=== PATIENT | male | born 1960 | race Two or more races ===

== ENCOUNTER 2018-11-07 11:27 | Inpatient (IN) | payer SELFPAY ==
[~2018-11-07] VITALS: Ht 175.3 cm; Wt 73.3 kg
[2018-11-07] MEDS ORDERED: SODIUM CHLORIDE 0.9% 1,000 ML IV ONE (12:59)
[2018-11-07] MEDS ORDERED: SODIUM CHLORIDE 0.9% 1,000 ML IVB ONE (13:18)
[2018-11-07] MEDS ORDERED: TETANUS-DIPTH-ACEL PERTUSSIS 0.5ML SYRG IM ONE (13:30)
[2018-11-07] MEDS ORDERED: cefTRIAXone 1GM/50ML D5W 50 ML IV ONE (13:30)
[2018-11-07 13:58] LABS: Basophils # (auto) 0.1 uL; Basophils % (auto) 0.6 % (0.0-2.0); Eosinophils # (auto) 0.2 uL; Hemoglobin 11.1 g/dL (13.5-17.5); Neutrophils % (auto) 84.7 % (37.0-80.0); White Blood Cell 17.2 10^3/uL (4.4-10.8)
[2018-11-07 14:00] LABS: Hematocrit 33.8 % (41.0-53.0); Lymphocytes # (auto) 1.1 uL; Lymphocytes % (auto) 6.5 % (10.0-50.0); Mean Corpuscular Hemoglobin 25.8 pg (28.0-32.0); Mean Corpuscular Hgb Conc. 32.8 g/dL (32.0-36.0); Mean Corpuscular Volume 78.9 fL (80.0-100.0); Monocytes # (auto) 1.2 uL; Monocytes % (auto) 7.2 % (0.0-12.0); Neutrophils # (auto) 14.5 uL; Platelet Count (auto) 707 10^3/uL (140-450); Red Blood Cells 4.28 10^6/uL (4.5-5.90)
[2018-11-07 14:13] LABS: Albumin 2.8 g/dL (3.4-5.0); Calcium 8.2 mg/dL (8.5-10.1); Magnesium 2.5 mg/dL (1.6-2.6); Potassium 4.5 mmol/L (3.5-5.1)
[2018-11-07 14:16] LABS: BUN/Creatinine Ratio 17.6; Bilirubin, Total 0.4 mg/dL (0.2-1.0); Total Protein 6.7 g/dL (6.4-8.2)
[2018-11-07] MEDS ORDERED: LEVOFLOXACIN 500MG 100 ML IV ONE (15:00)
[2018-11-07 15:26] LABS: Urine Bacteria NONE SEEN /hpf (None Seen); Urine Blood Negative /uL (Negative); Urine Specific Gravity 1.004 (1.001-1.035); Urine WBC <1 /hpf (0 - 3)
[2018-11-07] MEDS ORDERED: MORPHINE SULF INJ 2 MG/ML SYRINGE 1ML IV PRN (19:00)
[2018-11-07] MEDS ORDERED: MORPHINE SULFATE 4 MG/ML SYR/VIAL IV PRN (19:00)
[2018-11-07] MEDS ORDERED: NITROGLYCERIN 0.4 MG SL TAB SL PRN (19:00)
[2018-11-07] MEDS: IPRATROPIUM BROM 0.5 MG/2.5ML INH SOL NEB SCH (19:00)
[2018-11-07] MEDS: ALBUTEROL SULF 2.5 MG/0.5ML(0.5%) NEB SOLN NEB SCH (19:00)
[2018-11-07] MEDS ORDERED: ONDANSETRON HCL 4 MG/2 ML VIAL IV PRN (19:00)
[2018-11-07] MEDS ORDERED: DEXTROSE (50%) 50ML SYRG IV PRN (19:15)
[2018-11-07 19:21] VITALS: BP 109/59
[2018-11-07] MEDS: SODIUM CHLORIDE 0.9% 1,000 ML IV SCH (20:18)
[2018-11-07 21:00] VITALS: BP 125/71
--- NOTE | 2018-11-07 21:00 | NUR ---
Telemetry admit from ER EBONY POPE admitted to Telemetry unit after SBAR received. Patient oriented to Olivia Gonzales RN primary RN, unit, room, bed, and unit policies regarding patient care and visiting hours. Patient now on continuous telemetry monitoring, tele box # 7 and telemetry reading on arrival to unit is SR. Patient weighed by bedscale and encouraged to call if they need something. All questions and concerns addressed, patient verbalized understanding, will continue to monitor Note: []
[2018-11-07 22:00] VITALS: BP 125/71
[2018-11-07] MEDS: CLINDAMYCIN 600MG IV 50 ML IV SCH (23:46)
[2018-11-07] MEDS: ACYCLOVIR 400 MG TAB PO SCH (23:46)
[2018-11-07] MEDS: ACCU-CHEK COMFORT CURVE STRIP VI SCH (23:47)
[2018-11-07] MEDS: InsuLIN REG 1unit/0.01ml Soln (100units/ml) SC SCH (23:47)
[2018-11-08] MEDS ORDERED: LAM100T PO (00:04)
[2018-11-08] MEDS ORDERED: METF-371 PO (00:04)
[2018-11-08] MEDS ORDERED: CANA300T PO (00:04)
[2018-11-08] MEDS ORDERED: DIVA500T53 PO (00:04)
[2018-11-08] MEDS ORDERED: ARIP1TAB7 PO (00:04)
[2018-11-08] MEDS ORDERED: AMPH20TA20 PO (00:04)
[2018-11-08] MEDS ORDERED: ASPI81CH43 PO (00:04)
[2018-11-08] MEDS ORDERED: CLON1TAB PO (00:04)
[2018-11-08 04:14] VITALS: BP 125/71
[2018-11-08] MEDS: SODIUM CHLORIDE 0.9% 1,000 ML IV SCH ×2 (05:15→17:30)
[2018-11-08 05:43] LABS: Basophils # (auto) 0 uL; Eosinophils # (auto) 0.2 uL; Monocytes # (auto) 1.4 uL; Monocytes % (auto) 9.4 % (0.0-12.0); White Blood Cell 14.7 10^3/uL (4.4-10.8)
[2018-11-08 05:47] LABS: Basophils % (auto) 0.2 % (0.0-2.0); Eosinophils % (auto) 1.6 % (0.0-7.0); Hematocrit 34.2 % (41.0-53.0); Hemoglobin 11.7 g/dL (13.5-17.5); Lymphocytes # (auto) 1.7 uL; Lymphocytes % (auto) 11.8 % (10.0-50.0); Mean Corpuscular Hemoglobin 26.8 pg (28.0-32.0); Mean Corpuscular Hgb Conc. 34.1 g/dL (32.0-36.0); Mean Corpuscular Volume 78.6 fL (80.0-100.0); Neutrophils # (auto) 11.3 uL; Platelet Count (auto) 713 10^3/uL (140-450); Red Blood Cells 4.35 10^6/uL (4.5-5.90); Red Cell Distribution Width 16.1 % (11.8-14.3)
[2018-11-08 05:53] VITALS: BP 140/93
[2018-11-08] MEDS: CLINDAMYCIN 600MG IV 50 ML IV SCH ×3 (06:08→20:20)
[2018-11-08] MEDS: ACYCLOVIR 400 MG TAB PO SCH ×5 (06:09→20:20)
[2018-11-08] MEDS: ACCU-CHEK COMFORT CURVE STRIP VI SCH ×4 (06:10→22:10)
[2018-11-08 06:13] LABS: BUN/Creatinine Ratio 15.5; Potassium 4.3 mmol/L (3.5-5.1)
--- NOTE | 2018-11-08 06:27 | NUR ---
Patient is by the window laughing and talking to himself. He took off tele box and said that its not working and threw batteries in the trash. Reoriented to time, place and situation and patient verbalized understanding, will endorse to dayshift RN
[2018-11-08] MEDS: InsuLIN REG 1unit/0.01ml Soln (100units/ml) SC SCH ×4 (06:28→22:10)
[2018-11-08] MEDS: ALBUTEROL SULF 2.5 MG/0.5ML(0.5%) NEB SOLN NEB SCH ×4 (07:04→19:48)
[2018-11-08] MEDS: IPRATROPIUM BROM 0.5 MG/2.5ML INH SOL NEB SCH ×4 (07:04→19:48)
[2018-11-08 07:40] LABS: Alcohol, Urine < 3.0 mg/dL (0-5); Amphetamine Screen, Urine NEGATIVE (NEGATIVE); Barbiturate Scree,Urine NEGATIVE (NEGATIVE); Benzodiazephine Screen, Urine NEGATIVE (NEGATIVE); Cannabinoid Screen, Urine NEGATIVE (NEGATIVE); Cocaine Screen, Urine NEGATIVE (NEGATIVE); Opiate Scree,Urine NEGATIVE (NEGATIVE); Phencyclidine Screen, Urine NEGATIVE (NEGATIVE)
[2018-11-08 08:56] VITALS: BP 140/74
[2018-11-08] MEDS: PANTOPRAZOLE 40 MG TAB PO SCH (10:29)
[2018-11-08] MEDS: lamoTRIgine 25 MG TAB PO SCH (10:30)
[2018-11-08] MEDS: LEVOFLOXACIN 750MG 150 ML IV SCH (10:32)
[2018-11-08] MEDS: NICOTINE 21MG/24 HR TOPICAL PATCH TD SCH ×2 (10:50→10:54)
[2018-11-08 13:00] VITALS: BP 117/79
--- NOTE | 2018-11-08 13:08 | NUR ---
I ENTERED THE ROOM OF MR. Hull, and I found the calm and cooperative. He sates that his pain is 7 on a scale from 0 to 10. His RR:14, hr:74. PHYSICAL EXAM: hIS LUNGS ARE CLEAR, AND HIS ABDOMEN: BOWEL SOUNDS ARE PRESENT IN ALL QUADRANTS. AT 1210 I TOOK HIS BLOOD GLUCOSE LEVEL TWO TIMES: FIRST READING WAS: 330 MG/DL AND THE SECOND WAS 293 MG/DL. I GAVE 6 UNITS OF INSULIN AND THE PATIENT EAT HIS LUNCH AND HE IS STABLE NOW. Addendum: 11/08/18 at 1318 by Madhavi Strong RN HIGH BLOOD GLUCOSE LEVEL
--- NOTE | 2018-11-08 15:30 | NUR ---
PT NOTES PT FOUND IN THE ROOM PLAYING WITH THE IV TUBING. PT HAD OPENED THE IV PUMP, PULLED OUT THE TUBING, PULLED THE EMPTY IV BAG OF ANTIBIOTIC AND WAS PULLING THE IVPB TUBING SAYING "HE'S WORKING OUT" . DR ARANA AT BEDSIDE.
[2018-11-08] MEDS: clonazePAM 0.5 MG TAB PO PRN (16:00)
[2018-11-08 17:00] VITALS: BP 129/83
--- NOTE | 2018-11-08 17:00 | NUR ---
AMA TO SMOKE FORM SIGNED AND FILED IN PT'S CHART
--- NOTE | 2018-11-08 17:00 | NUR ---
PT NOTES PT NOTED TO BE CALMER AND MORE ORIENTED AFTER TAKING CLONOPIN. PT STATED THAT HE GETS SEVERE ANXIETY BUT IS NOW FEELING MUCH BETTER.
--- NOTE | 2018-11-08 19:30 | NUR ---
PT NOTES PT IN THE ROOM, RESTING, WATCHING TV. DENIES PAIN AT THIS TIME. NO DISTRESS NOTED.
[2018-11-08] MEDS: HYDROcodone-ACET 5/325MG TAB PO PRN (20:20)
[2018-11-08] MEDS: ACETAMINOPHEN 500 MG TAB PO PRN (20:38)
--- NOTE | 2018-11-08 20:39 | NUR ---
D/C TELE DR ARANA ORDERED TO D/C TELE. TELEMETRY REMOVED.
[2018-11-08 21:49] VITALS: BP 119/65
[2018-11-09] MEDS: IPRATROPIUM BROM 0.5 MG/2.5ML INH SOL NEB SCH ×4 (00:45→19:16)
[2018-11-09] MEDS: ALBUTEROL SULF 2.5 MG/0.5ML(0.5%) NEB SOLN NEB SCH ×4 (00:45→19:15)
[2018-11-09] MEDS: SODIUM CHLORIDE 0.9% 1,000 ML IV SCH ×2 (01:15→11:15)
[2018-11-09 04:49] VITALS: BP 129/67
[2018-11-09] MEDS: ACYCLOVIR 400 MG TAB PO SCH ×5 (05:10→22:36)
[2018-11-09] MEDS: CLINDAMYCIN 600MG IV 50 ML IV SCH ×3 (05:10→22:35)
[2018-11-09] MEDS: HYDROcodone-ACET 5/325MG TAB PO PRN ×2 (05:11→11:43)
[2018-11-09] MEDS: ACETAMINOPHEN 500 MG TAB PO PRN (05:15)
[2018-11-09] MEDS: InsuLIN REG 1unit/0.01ml Soln (100units/ml) SC SCH ×4 (05:16→22:37)
[2018-11-09] MEDS: ACCU-CHEK COMFORT CURVE STRIP VI SCH ×4 (05:16→22:37)
[2018-11-09 06:52] LABS: Hemoglobin 11.5 g/dL (13.5-17.5); Neutrophils # (auto) 7.4 uL; White Blood Cell 9.8 10^3/uL (4.4-10.8)
[2018-11-09 06:55] LABS: Basophils # (auto) 0.1 uL; Basophils % (auto) 0.6 % (0.0-2.0); Eosinophils # (auto) 0.3 uL; Eosinophils % (auto) 2.6 % (0.0-7.0); Hematocrit 34.3 % (41.0-53.0); Lymphocytes # (auto) 1.1 uL; Lymphocytes % (auto) 11.2 % (10.0-50.0); Mean Corpuscular Hemoglobin 26.5 pg (28.0-32.0); Mean Corpuscular Hgb Conc. 33.6 g/dL (32.0-36.0); Monocytes % (auto) 10.1 % (0.0-12.0); Neutrophils % (auto) 75.5 % (37.0-80.0); Nucleated Red Blood Cells % 0.1 %; Platelet Count (auto) 660 10^3/uL (140-450); Red Blood Cells 4.34 10^6/uL (4.5-5.90); Red Cell Distribution Width 16.4 % (11.8-14.3)
[2018-11-09 07:07] LABS: Potassium 4.5 mmol/L (3.5-5.1)
[2018-11-09 07:13] LABS: Calcium 7.9 mg/dL (8.5-10.1)
--- NOTE | 2018-11-09 07:20 | NUR ---
Morning rounds- educated patient on IV administration Patient seen standing at the doorway. Patient requesting to ambulate to smoking area to smoke. Patient seen squeezing the IV NS bag. Patient stated "I was trying to get the water in so I could go downstairs to smoke." Educated the patient to not touch the IV set up and/or the pump. Patient verbalized understanding. Instructed patient on POC, fall precautions and to call for assistance as needed. patient verbalized understanding. Patient dressed in street clothes at this time with his personal shoes on. Patient ambulated off the unit with a steady gait. No s/s of distress noted at this time.
--- NOTE | 2018-11-09 08:10 | NUR ---
Positive MRSA results Received positive MRSA nares results. Paged Dr. Sullivan to notify. Notified anne marie Moreira RN. Requested cici Negron, to place isolation food service manager at door. Jamil verbalized understanding.
--- NOTE | 2018-11-09 08:13 | NUR ---
Updated RONA Sullivan Telephone orders received and read back to verify. RN to place orders per MD's request.
--- NOTE | 2018-11-09 08:30 | NUR ---
RE: Wound and respiratory culture orders Patient denies productive cough at this time. Instructed patient to notify staff if cough is productive so that a sputum sample can be collected. Patient verbalized understanding. No drainage from the wounds to the right 5th digit and the left wrist. Unable to collect wound culture specimen at this time.
[2018-11-09 09:00] VITALS: BP 149/72
[2018-11-09] MEDS: lamoTRIgine 25 MG TAB PO SCH (11:18)
[2018-11-09] MEDS: NICOTINE 21MG/24 HR TOPICAL PATCH TD SCH (11:19)
[2018-11-09] MEDS: clonazePAM 0.5 MG TAB PO PRN (11:19)
[2018-11-09] MEDS: LEVOFLOXACIN 750MG 150 ML IV SCH (11:19)
[2018-11-09] MEDS: PANTOPRAZOLE 40 MG TAB PO SCH (11:19)
[2018-11-09 13:00] VITALS: BP 148/65
--- NOTE | 2018-11-09 14:55 | NUR ---
MD was at bedside - Dr. Sullivan POC discussed with the patient and this RN. MD to place verbal orders.
--- NOTE | 2018-11-09 17:56 | NUR ---
Patient refused sliding scale Insulin dose Patient stated "dinner is going to be served soon. I'm going to eat a little protein and my sugar will work itself out. I don't need any insulin." Insulin will be wasted in the medication pyxis with an RN witness.
--- NOTE | 2018-11-09 17:58 | NUR ---
Shakira returned to medication pyxis [place] removed to medicate patient PRN for pain. Patient stated "Nah, I'm good right now. I've had enough of that stuff for the day I decided." Medication will be returned to the medication pyxis with an RN witness.
[2018-11-09 18:07] VITALS: BP 139/69
--- NOTE | 2018-11-09 18:45 | NUR ---
End of shift patient sitting at side of bed with feet dangling. patient has personal clothing on with personal shoes on. Patient educated on fall precautions. Patient verbalized understanding. Bed is in low locked position with x2 side rails up and call light within reach. No drainage noted to the wound on the right 5th digit and/or wound on the left wrist. Will endorse care to RN.
--- NOTE | 2018-11-09 20:30 | NUR ---
Pt is sitting up in bed and stating that, " My IV is no good and I want it out. It's hanging out and I am going to just pull it out." IV site is cdi and IV is intact. IV site needs tape reinforcement and pt is refusing to allow that and threatening to pull the IV out. Explained to pt that IV will be dc'd when new IV can be placed. Pt verbalizes understanding.
[2018-11-09] MEDS: metFORMIN HYDROCHLORIDE 850 MG TAB PO SCH (22:36)
[2018-11-10] MEDS: IPRATROPIUM BROM 0.5 MG/2.5ML INH SOL NEB SCH ×4 (00:46→19:06)
[2018-11-10] MEDS: ALBUTEROL SULF 2.5 MG/0.5ML(0.5%) NEB SOLN NEB SCH ×4 (00:46→19:06)
[2018-11-10 05:00] VITALS: BP 128/80
[2018-11-10] MEDS: ACYCLOVIR 400 MG TAB PO SCH ×5 (06:17→22:17)
[2018-11-10] MEDS: metFORMIN HYDROCHLORIDE 850 MG TAB PO SCH ×3 (06:17→22:16)
[2018-11-10] MEDS: InsuLIN REG 1unit/0.01ml Soln (100units/ml) SC SCH ×4 (06:17→22:17)
[2018-11-10] MEDS: CLINDAMYCIN 600MG IV 50 ML IV SCH ×3 (06:17→22:16)
[2018-11-10] MEDS: ACCU-CHEK COMFORT CURVE STRIP VI SCH ×4 (06:18→22:19)
[2018-11-10 08:30] VITALS: BP 133/76
[2018-11-10] MEDS: HYDROcodone-ACET 5/325MG TAB PO PRN (08:38)
[2018-11-10] MEDS: LEVOFLOXACIN 750MG 150 ML IV SCH (09:45)
[2018-11-10] MEDS: lamoTRIgine 25 MG TAB PO SCH (09:45)
[2018-11-10] MEDS: NICOTINE 21MG/24 HR TOPICAL PATCH TD SCH (09:47)
[2018-11-10] MEDS: PANTOPRAZOLE 40 MG TAB PO SCH (10:00)
[2018-11-10 12:31] VITALS: BP 110/58
[2018-11-10 16:21] VITALS: BP 141/73
--- NOTE | 2018-11-10 19:40 | NUR ---
Opening shift Note Pt is resting in bed watching TV. No s/s of any distress noted at this time. POC discussed with pt and pt verbalizes understanding. Reinforcement needed prn. Bed is low, wheels are locked, and call light is with in reach.
[2018-11-10 22:00] VITALS: BP 146/78
[2018-11-10 22:58] VITALS: BP 146/78
--- NOTE | 2018-11-10 23:15 | NUR ---
Entered pt room because call light going off and found pt standing in a defensive position with the disconnected call light in his hands. Pt appears to be confused and when asked what's going on pt states that, " I just need to go to sleep and this is how I sleep." asked pt to hand over the call light cord and then pt wrapped the cord around his neck and stated again that , " This is how I go to sleep." Pt is backed up against the opposite side of the room and standing near the window and yamil huerta called at this time. As smelter charger and other staff run in with security, this RN went to [facility] to obtain Klonopin per prn orders.
[2018-11-10] MEDS: clonazePAM 0.5 MG TAB PO PRN (23:20)
--- NOTE | 2018-11-10 23:20 | NUR ---
Pt offered the Klonopin PO and pt took med PO willingly stating that , " Oh I forgot about that , oh yes I want to take Klonopin. " I also have Depakote 3 tablets that I take when I feel a Psychotic episode coming on that my doctor told me to take." Pt is now sitting on the bed and appears to be calm and appropriate, call light is plugged into the wall , and pt is asking for a sandwich. Will notify the farm demonstrator hospitalist and give status report.
--- NOTE | 2018-11-10 23:30 | NUR ---
FSBS = 136
--- NOTE | 2018-11-10 23:57 | NUR ---
Pt sitting on the side of his bed dressed in street clothes and asking to go out to smoke. Pt encouraged to stay inside and he verbalizes understanding at this time and states, " I guess I will just wait til morning."
[2018-11-11] MEDS: ALBUTEROL SULF 2.5 MG/0.5ML(0.5%) NEB SOLN NEB SCH ×4 (00:20→19:28)
[2018-11-11] MEDS: IPRATROPIUM BROM 0.5 MG/2.5ML INH SOL NEB SCH ×4 (00:20→19:27)
--- NOTE | 2018-11-11 00:32 | NUR ---
Still awaiting return call from Hospitalist ; paged again now.
--- NOTE | 2018-11-11 00:35 | NUR ---
Pt laying in bed quietly watching TV fully dressed with shoes on.
--- NOTE | 2018-11-11 00:36 | NUR ---
Return page from Jennifer BROWN and new orders received at this time for sitter and to resume home medication of Depakote 500mg PO TID.
--- NOTE | 2018-11-11 05:00 | NUR ---
Pt asking to go down to go down and smoke. Explained to pt that he now has to stay in the room with a sitter and pt asks, " Do I have a 5150 hold on me? Be cause if I do not then I want to go down and smoke." Pt escorted down to smoking area by staff. Pt wears surgical mask when out of room.
--- NOTE | 2018-11-11 05:10 | NUR ---
Received a call from security to meet them down by the elevators. When down by the elevators pt was sitting in a wheel chair with security and chemist biological of the ER and pt yelling out that they are trying to take him into the wrong elevator to go to room 288. Explained to pt that the elevators are the correct elevators to get back to his room and pt very resistant and suspicious. Security and MASSAGE THERAPY INSTRUCTOR lifted w/c and got pt into the elevator and back to room 288. Pt then calmed down.
[2018-11-11 05:25] VITALS: BP 126/75
--- NOTE | 2018-11-11 05:30 | NUR ---
's office on the phone stating that pt has called and seems confused , asking for the assistant manager trainee's to come get him and take him to the homeless [facility] living. Explained that pt is confused and is safe here.
--- NOTE | 2018-11-11 05:57 | NUR ---
Pt has removed left wrist drsg and holding a hand skin diver wipe over the wound. He states that, " it popped." No drainage noted . Pt is also refusing all meds and accu check this morning.
[2018-11-11] MEDS: ACYCLOVIR 400 MG TAB PO SCH ×5 (06:00→22:15)
[2018-11-11] MEDS: metFORMIN HYDROCHLORIDE 850 MG TAB PO SCH ×3 (06:00→22:15)
[2018-11-11] MEDS: CLINDAMYCIN 600MG IV 50 ML IV SCH ×3 (06:00→22:14)
[2018-11-11] MEDS: InsuLIN REG 1unit/0.01ml Soln (100units/ml) SC SCH ×4 (06:01→22:16)
[2018-11-11] MEDS: ACCU-CHEK COMFORT CURVE STRIP VI SCH ×4 (06:01→22:15)
[2018-11-11] MEDS: lamoTRIgine 25 MG TAB PO SCH (09:18)
[2018-11-11] MEDS: NICOTINE 21MG/24 HR TOPICAL PATCH TD SCH (09:21)
[2018-11-11] MEDS: LEVOFLOXACIN 750MG 150 ML IV SCH (09:22)
[2018-11-11] MEDS: PANTOPRAZOLE 40 MG TAB PO SCH (09:24)
[2018-11-11 12:00] VITALS: BP 123/83
--- NOTE | 2018-11-11 15:58 | NUR ---
Dr. Couch at bedside, received new orders, noted and carried out.
[2018-11-11 16:00] VITALS: BP 135/75
--- NOTE | 2018-11-11 16:00 | NUR ---
Spoke with Harish NICHOLS) regarding patient needs a sitter, she made aware and will find one.
--- NOTE | 2018-11-11 16:10 | NUR ---
Psychiatric called regarding patient had suicidal idea last night, awaiting to call back .
--- NOTE | 2018-11-11 17:30 | NUR ---
Avinash Lugo (psychiatric) discussed with patient via VDO conference.
[2018-11-11 22:00] VITALS: BP 131/72
[2018-11-12] MEDS: ALBUTEROL SULF 2.5 MG/0.5ML(0.5%) NEB SOLN NEB SCH ×3 (00:53→11:50)
[2018-11-12] MEDS: IPRATROPIUM BROM 0.5 MG/2.5ML INH SOL NEB SCH ×3 (00:53→11:50)
[2018-11-12 05:00] VITALS: BP 107/74
[2018-11-12 06:01] LABS: Basophils # (auto) 0 uL; Basophils % (auto) 0.5 % (0.0-2.0); Eosinophils # (auto) 0.3 uL; Eosinophils % (auto) 2.5 % (0.0-7.0); Hematocrit 36.8 % (41.0-53.0); Hemoglobin 12.4 g/dL (13.5-17.5); Lymphocytes # (auto) 1.1 uL; Lymphocytes % (auto) 10.3 % (10.0-50.0); Mean Corpuscular Hemoglobin 26.6 pg (28.0-32.0); Mean Corpuscular Hgb Conc. 33.7 g/dL (32.0-36.0); Monocytes # (auto) 1.1 uL; Monocytes % (auto) 9.9 % (0.0-12.0); Neutrophils # (auto) 8.3 uL; Neutrophils % (auto) 76.8 % (37.0-80.0); Platelet Count (auto) 672 10^3/uL (140-450); Red Blood Cells 4.66 10^6/uL (4.5-5.90); Red Cell Distribution Width 16.7 % (11.8-14.3); White Blood Cell 10.9 10^3/uL (4.4-10.8)
[2018-11-12 06:03] LABS: BUN/Creatinine Ratio 14.2; Calcium 8.5 mg/dL (8.5-10.1); Potassium 4.6 mmol/L (3.5-5.1)
[2018-11-12] MEDS: CLINDAMYCIN 600MG IV 50 ML IV SCH ×2 (06:05→14:00)
[2018-11-12] MEDS: metFORMIN HYDROCHLORIDE 850 MG TAB PO SCH ×2 (06:05→13:15)
[2018-11-12] MEDS: ACYCLOVIR 400 MG TAB PO SCH ×3 (06:06→14:00)
[2018-11-12] MEDS: InsuLIN REG 1unit/0.01ml Soln (100units/ml) SC SCH ×2 (06:06→12:01)
[2018-11-12] MEDS: ACCU-CHEK COMFORT CURVE STRIP VI SCH ×2 (06:06→12:02)
--- NOTE | 2018-11-12 07:43 | NUR ---
OPENING SHIFT NOTE ASSUMED CARE OF PATIENT. PATIENT AWAKE AND ALERT SITTING UP IN BED. NO S/S OF DISTRESS OR SOB NOTED BED IN LOWEST LOCKED POSITION, CALL LIGHT WITHIN REACH. SITTER AT BEDSIDE FOR PATIENT SAFETY. REVIEWED POC AND INSTRUCTED TO CALL FOR ASSIST NEEDED. WILL CONTINUE TO MONITOR.
--- NOTE | 2018-11-12 07:46 | NUR ---
Respiratory note: SCHEDULED MED NEB TX NOT GIVEN AT THIS TIME DUE TO PATIENT REFUSAL. PATIENT IS AWAKE AND ALERT NO RESPIRATORY DISTRESS NOTED OR STATED. PATIENT DENIES CHEST TIGHTNESS AND SHORTNESS OF BREATH. PATIENT IS CURRENTLY ON ROOM AIR SPO2 95%, RR 18. PATIENT SITTER IS AT BEDSIDE. PATENT AGREES TO CONTINUE SCHEDULED MED NEB TX ORDERED. WILL CONTINUE TO MONITOR PATIENT AND NOTIFY RN.
[2018-11-12] MEDS: lamoTRIgine 25 MG TAB PO SCH (10:00)
[2018-11-12] MEDS: LEVOFLOXACIN 750MG 150 ML IV SCH (10:53)
[2018-11-12] MEDS: NICOTINE 21MG/24 HR TOPICAL PATCH TD SCH (10:54)
[2018-11-12] MEDS: PANTOPRAZOLE 40 MG TAB PO SCH (10:55)
--- NOTE | 2018-11-12 11:53 | NUR ---
Nutrition Assessment Notes Please see attached link for complete assessment Est. Needs BW [id number] kcal (25-30 kcal/kgBW), 73-94 gms pro (1.0-1.3 gms/kgBW r/t wounds). Will continue to monitor pertinent labs and reassess nutrient needs prn Addendum: 11/12/18 at [address] Amended: Links added.
--- NOTE | 2018-11-12 16:10 | NUR ---
PATIENT FRUSTRATED PATIENT STANDING IN HALLWAY DEMANDING TO HAVE IV REMOVED. RUBBER ATTACHER, DARRYL REQUESTED THIS RN TO COME IMMEDIATELY PATIENT STATING HE WAS GOING TO PULL HIS OWN IV OUT. SITTER CONTINUED TO SIT AT WINDOW END OF ROOM DURING THIS TIME. THIS RN SUGGESTED PATIENT TO RETURN TO ROOM, SIT DOWN AND THIS RN PROCEEDED TO REMOVE IV. THIS RN INFORMED PATIENT THAT THE DISCHARGE WAS INCOMPLETE AT THIS TIME AND WOULD BE DONE SOON POSSIBLE THEN A RIDE COULD BE OBTAINED FOR PATIENT. PATIENT STATED "I WILL NOT BE WAITING, IM GOING TO LEAVE NOW" THIS RN ATTEMPTED TO REQUEST PATIENT TO STAY FOR DISCHARGE INSTRUCTIONS, PATIENT CONTINUED TO REFUSE. PATIENT SHOWED NO S/S OF DISTRESS UPON LEAVING, AND LEFT WITHOUT PRESCRIPTIONS OR INSTRUCTIONS.
== END 2018-11-12 16:10 | disposition home or self-care (01) | DRG 871 ==
LOC: ER 11:27 → TELE 19:05 → TELE-WESTW 20:38 → WEST WING 11-08 20:31
PROVIDERS: ADMIT Nurse Practitioner Acute Care; ATTEND Internal Medicine
DX: A41.9 Sepsis, unspecified organism (principal); J18.9 Pneumonia, unspecified organism; E44.0 Moderate protein-calorie malnutrition; J98.11 Atelectasis; L02.511 Cutaneous abscess of right hand; L03.113 Cellulitis of right upper limb; R45.851 Suicidal ideations; B00.1 Herpesviral vesicular dermatitis; B95.8 Unspecified staphylococcus as the cause of diseases classified elsewhere; E11.65 Type 2 diabetes mellitus with hyperglycemia; E78.00 Pure hypercholesterolemia, unspecified; E78.5 Hyperlipidemia, unspecified; F17.200 Nicotine dependence, unspecified, uncomplicated; F31.9 Bipolar disorder, unspecified; F41.9 Anxiety disorder, unspecified; Z79.82 Long term (current) use of aspirin; Z22.322 Carrier or suspected carrier of Methicillin resistant Staphylococcus aureus; Z68.23 Body mass index [BMI] 23.0-23.9, adult
CPT/HCPCS: 36415; 71045; 71046; 73130; 80048; 80053; 80307; 81001; 82962; 83036; 83735; 84443; 85025; 87040; 87081; 90471; 90715; 93005; 94640; 96361; 96365; 96367; A6257; G0378; J0696; J1815; J1956; J3490